=== PATIENT | male | born 1985 | race Caucasian/White ===

== ENCOUNTER 2019-10-04 15:59 | Emergency (ER) | payer OTHER ==
[~2019-10-04] VITALS: Ht 175.3 cm; Wt 77.1 kg
[2019-10-04] MEDS ORDERED: CIPRO500 MG PO (18:43)
== END 2019-10-04 18:52 | disposition home or self-care (01) ==
LOC: ER 15:59
DX: R89.5 Abnormal microbiological findings in specimens from other organs, systems and tissues (principal)